=== PATIENT | male | born 1995 | race African-American/Black ===

== ENCOUNTER 2017-03-19 21:48 | Emergency (ER) | payer OTHER ==
[~2017-03-19] VITALS: Ht 185.4 cm; Wt 78.0 kg
[2017-03-19] MEDS ORDERED: DEPAKOTE250 MG PO (21:59)
[2017-03-19] MEDS ORDERED: RISPERDAL0.25 MG ORAL (21:59)
[2017-03-19] MEDS ORDERED: QUETIAPINE FUMA25 MG ORAL (21:59)
[2017-03-19] MEDS ORDERED: BACTRIM DS TAB1 EAC1 ORAL (22:27)
[2017-03-19] MEDS ORDERED: MUPIROCIN22 GM TOPIC (22:28)
--- NOTE | 2017-03-19 22:28 | Emergency Room Report ---
History of Present Illness General Chief Complaint: Skin Rash/Abscess Source: Medical Record, Caregiver Present Illness HPI This is a 21-year-old male with a history of mental retardation. He presents with chief complaint of abscess to his right leg. No drainage. On and off for the last week. No fever or chills. No nausea no vomiting. Similar symptom in the past. Allergies: Coded Allergies: CORN (Verified Allergy, Unknown, 03/19/17) EGG (Verified Allergy, Unknown, 03/19/17) PEAS (Verified Allergy, Unknown, 03/19/17) TOMATO (Verified Allergy, Unknown, 03/19/17) Uncoded Allergies: PEANUT BUTTER (Allergy, Unknown, 03/19/17) SOYBEANS (Allergy, Unknown, 03/19/17) STRAWBERRIES (Allergy, Unknown, 03/19/17) Patient History Past Medical History: see triage record, old chart reviewed, psych hx Past Surgical History: other Pertinent Family History: none Social History: Denies: smoking Immunizations: UTD Reviewed Nursing Documentation: PMH: Agreed, PSxH: Agreed Nursing Documentation-PMH Hx Asthma: Yes Review of Systems Eye: Denies: eye pain, blurred vision ENT: Denies: ear pain, nose congestion, throat swelling Respiratory: Denies: cough, shortness of breath Cardiovascular: Denies: chest pain, palpitations Gastrointestinal: Denies: abdominal pain, diarrhea, nausea, vomiting Musculoskeletal: Denies: back pain, joint pain Skin: Denies: rash Neurological: Denies: headache, numbness Endocrine: Denies: increased thirst, increased urine Hematologic/Lymphatic: Denies: easy bruising All Other Systems: negative except mentioned in HPI Physical Exam Vital Signs Date Time Temp Pulse Resp B/P (MAP) Pulse Ox O2 Delivery O2 Flow Rate FiO2 03/19/17 21:51 97.5 69 18 111/73 98 Room Air vitals normal Sp02 EP Interpretation: reviewed, normal General Appearance: well appearing, no apparent distress, alert Head: normocephalic, atraumatic Eyes: bilateral eye PERRL, bilateral eye EOMI ENT: hearing grossly normal, normal pharynx Neck: full range of motion, supple, no meningismus Respiratory: chest non-tender, lungs clear, normal breath sounds Cardiovascular #1: regular rate, rhythm, no murmur Gastrointestinal: normal bowel sounds, non tender, no mass, no organomegaly, no bruit, non-distended Musculoskeletal: back normal, normal range of motion, other - Left upper thigh posteriorly: there is a 4 cm lipoma. On the inferior aspect of it, a small abscess of 3 mm. Psychiatric: mood/affect normal Skin: warm/dry Procedures Incision and Drainage Incision and Drainage : Consent: Verbal Site: Left thigh Blade Size: 11 I & D Procedure: betadine prep, sterile drapes applied Wound Location: lower extremity Wound's Depth, Shape: superficial Wound Length (cm): 1 Wound Explored: clean Anesthesia: 1% Lidocaine Volume Anesthetic (ccs): 5 Patient Tolerated: Well Complications: None Progress Area clean with Betadine. Local anesthetic 1% lidocaine. I made an incision over the abscess. A small amount of pus. I made another incision over the lipoma and dissected down. There was no pus. She tolerated procedure without a problem. Medical Decision Making Diagnostic Impression: Primary Impression: Abscess of left thigh Additional Impression: Lipoma Qualified Codes: D17.24 - Benign lipomatous neoplasm of skin and subcutaneous tissue of left leg ER Course Patient with superficial abscess of his lower extremity. Most likely MRSA. Looks well. No necrotizing fasciitis. We'll discharge him. Last Vital Signs Date Time Temp Pulse Resp B/P (MAP) Pulse Ox O2 Delivery O2 Flow Rate FiO2 03/19/17 21:51 97.5 69 18 111/73 98 Room Air Status: improved Disposition: HOME, SELF-CARE Condition: Stable Scripts Mupirocin* (MUPIROCIN*) 22 Gm Oint...g. 1 APPLIC TOPIC THREE TIMES A DAY, #22 GM Prov: JUANA LARSEN M.D. 03/19/17 Trimethoprim/Sulfamethoxazole 160/800* (BACTRIM DS TABLET*) 1 Each Tablet 1 TAB ORAL Q12H, #14 TAB 0 Refills Prov: JUANA LARSEN M.D. 03/19/17 Patient Instructions: Abscess Additional Instructions: Followup with your DrAbdon in 2-3 days for recheck. Return if worse. JUANA LARSEN M.D. Mar 19, 2017 22:28
[2017-03-19 22:40] VITALS: BP 111/73
== END 2017-03-19 22:40 | disposition home or self-care (01) ==
LOC: EMR 22:18
DX: L02.415 Cutaneous abscess of right lower limb (principal); D17.79 Benign lipomatous neoplasm of other sites; J45.909 Unspecified asthma, uncomplicated; Z91.012 Allergy to eggs; Z91.010 Allergy to peanuts; Z91.018 Allergy to other foods
CPT/HCPCS: 10060; 99284

== ENCOUNTER 2017-03-24 18:57 | Emergency (ER) | payer OTHER ==
[~2017-03-24] VITALS: Ht 190.5 cm; Wt 77.1 kg
[~2017-03-24 18:57] MED LIST: BACTRIM DS TAB1 EAC1 ORAL; DEPAKOTE250 MG PO; MUPIROCIN22 GM TOPIC; QUETIAPINE FUMA25 MG ORAL; RISPERDAL0.25 MG ORAL
[2017-03-24 19:43] VITALS: BP 130/70
[2017-03-24] MEDS ORDERED: Bacitracin Oint UD TOPIC ONE (19:45)
[2017-03-24 19:50] VITALS: BP 124/77
--- NOTE | 2017-03-24 21:12 | Emergency Room Report ---
History of Present Illness General Chief Complaint: Wound Recheck/Suture Removal Source: Caregiver Present Illness HPI The patient is a 21-year-old male with a history of autism brought in by caregiver for wound check. The patient was seen in this emergency department within the past week for an abscess on the left thigh. Incision and drainage was done. The patient is given prescription for topical antibiotics and Bactrim DS which he has been using as directed. The caregiver states that there has been some clear drainage from the area. Patient is unable to provide any information. Caregiver denies any other symptoms for the patient including fever Allergies: Coded Allergies: CORN (Verified Allergy, Unknown, 03/19/17) EGG (Verified Allergy, Unknown, 03/19/17) PEAS (Verified Allergy, Unknown, 03/19/17) TOMATO (Verified Allergy, Unknown, 03/19/17) Uncoded Allergies: PEANUT BUTTER (Allergy, Unknown, 03/19/17) SOYBEANS (Allergy, Unknown, 03/19/17) STRAWBERRIES (Allergy, Unknown, 03/19/17) Patient History Past Medical History: see triage record Pertinent Family History: none Reviewed Nursing Documentation: PMH: Agreed, PSxH: Agreed Nursing Documentation-PMH Hx Asthma: Yes Hx Seizures: Yes Review of Systems All Other Systems: limited Physical Exam Vital Signs Date Time Temp Pulse Resp B/P (MAP) Pulse Ox O2 Delivery O2 Flow Rate FiO2 03/24/17 19:17 95 16 130/70 97 Room Air 03/24/17 19:43 98.2 Sp02 EP Interpretation: reviewed, normal General Appearance: no apparent distress, alert, GCS 15, non-toxic Head: normocephalic, atraumatic Eyes: bilateral eye normal inspection, bilateral eye PERRL Musculoskeletal: back normal, gait/station normal, normal range of motion Neurologic: alert, responsive, sensory intact Skin: normal turgor, other - L medial thigh has abscess on skin growth with healing incision. No drainage. Lymphatic: no adenopathy Medical Decision Making PA Attestation Dr. Urias is my supervising physician. Patient management was discussed with my supervising physician Diagnostic Impression: Primary Impression: Abscess ER Course The patient is a 21-year-old male with a history of autism brought in by caregiver for wound check. Differential diagnoses considered but not limited to: abscess, cellulitis, non healing wound, re-infection, among others PE: afebrile. NAD L medial thigh has abscess on skin growth with healing incision. No drainage. The wound is cleaned and a new dressing is placed with bacitracin. The caregiver will continue to keep the area clean and dry and will finish a course of antibiotics. ER precautions are given Last Vital Signs Date Time Temp Pulse Resp B/P (MAP) Pulse Ox O2 Delivery O2 Flow Rate FiO2 03/24/17 19:50 98.2 88 20 124/77 100 Room Air Status: improved Disposition: HOME, SELF-CARE Condition: Improved Referrals: [facility]ERR[facility] (PCP) Patient Instructions: Abscess, [id number], Wound Check Additional Instructions: I discussed my findings with the patient's caregiver. All questions and concerns have been answered. Treatment and medication compliance have been addressed. I advised the patient that they need to follow up with PMD in 3-5 days. Return to ED if symptoms worsen, new symptoms arise, or if needed for any reason. Patient verbalized understanding of discharge instructions. JOHN PAUL ORTIZ Mar 24, 2017 21:12
== END 2017-03-24 19:50 | disposition home or self-care (01) ==
LOC: EMR 19:45
DX: Z48.817 Encounter for surgical aftercare following surgery on the skin and subcutaneous tissue (principal); L02.416 Cutaneous abscess of left lower limb; J45.909 Unspecified asthma, uncomplicated; Z91.012 Allergy to eggs; Z91.018 Allergy to other foods
CPT/HCPCS: 99283